=== PATIENT | female | born 1960 | race Caucasian/White ===

== ENCOUNTER 2016-03-11 13:36 | Emergency (ER) | payer OTHER ==
[~2016-03-11] VITALS: Ht 154.9 cm; Wt 97.0 kg
[2016-03-11 13:45] VITALS: TEMP 36.7; Ht 154.9 cm; Wt 97.0 kg
[2016-03-11] MEDS ORDERED: IBUPROFEN 600 MG TAB PO STA (14:47)
[2016-03-11] MEDS ORDERED: PROP20TA67 PO (15:00)
[2016-03-11] MEDS ORDERED: NVLG SQ (15:00)
[2016-03-11] MEDS ORDERED: RANI300T2 PO (15:00)
[2016-03-11] MEDS ORDERED: PRAV40TA PO (15:00)
[2016-03-11] MEDS ORDERED: CITA40TA4 PO (15:00)
[2016-03-11] MEDS ORDERED: INSDGI SC (15:00)
[2016-03-11] MEDS ORDERED: LISI-729 PO (15:00)
[2016-03-11] MEDS ORDERED: GABA-113 PO (15:00)
[2016-03-11] MEDS ORDERED: QUET1TAB34 PO (15:00)
[2016-03-11] MEDS ORDERED: GABA-112 PO (15:00)
[2016-03-11] MEDS ORDERED: ALLO300T2 PO (15:00)
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
[2016-03-11 15:53] VITALS: BP 123/69; PULSE 84; O2SAT 97
[2016-03-11] MEDS ORDERED: TRAMADOL HCL 50 MG TAB PO STA (15:55)
[2016-03-11] MEDS ORDERED: TRAM-10 PO (16:22)
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
== END 2016-03-11 16:20 | disposition home or self-care (01) ==
LOC: EDBD 13:36 → C.EDC 13:38
DX: R07.9 Chest pain, unspecified (principal); M54.5 Low back pain; E11.9 Type 2 diabetes mellitus without complications; K21.9 Gastro-esophageal reflux disease without esophagitis; V43.62XA Car passenger injured in collision with other type car in traffic accident, initial encounter; Z79.4 Long term (current) use of insulin; Z79.899 Other long term (current) drug therapy